=== PATIENT | male | born 1990 | race Caucasian/White ===

== ENCOUNTER 2018-08-23 23:35 | Emergency (ER) | payer SELFPAY ==
[~2018-08-23] VITALS: Ht 177.8 cm; Wt 73.0 kg
[2018-08-24 00:37] VITALS: BP 128/85
== END 2018-08-24 01:36 | disposition left against medical advice (07) ==
LOC: ER 23:35
DX: F41.9 Anxiety disorder, unspecified (principal); Z53.21 Procedure and treatment not carried out due to patient leaving prior to being seen by health care provider